=== PATIENT | male | born 1985 | race Caucasian/White ===

== ENCOUNTER 2020-11-05 23:00 | Emergency (ER) | payer SELFPAY ==
[~2020-11-05] VITALS: Ht 188 cm; Wt 120.2 kg
[2020-11-05 23:29] VITALS: Ht 188 cm; Wt 120.2 kg
[2020-11-06 01:58] VITALS: BP 135/95
== END 2020-11-06 01:58 | disposition home or self-care (01) ==
LOC: ED 23:00
DX: S20.212A Contusion of left front wall of thorax, initial encounter (principal); E11.9 Type 2 diabetes mellitus without complications; V80.010A Animal-rider injured by fall from or being thrown from horse in noncollision accident, initial encounter; Y93.89 Activity, other specified; Y92.89 Other specified places as the place of occurrence of the external cause; Y99.8 Other external cause status